=== PATIENT | female | born 1995 | race African-American/Black ===

== ENCOUNTER → 2021-04-13 | Outpatient (REF) | payer OTHER ==
[2021-04-13 16:47] LABS: HEMATOCRIT 42.1 % (36.0-47.0); HEMOGLOBIN 13.6 g/dl (12.0-15.5); MEAN CORPUSCULAR HEMOGLOBIN 26.6 pg (27.0-33.0); MEAN CORPUSCULAR HGB CONC 32.3 g/dl (32.0-36.5); MEAN CORPUSCULAR VOLUME 82.2 fl (80.0-96.0); PLATELET COUNT, AUTOMATED 348 10^3/uL (150-450); RED BLOOD COUNT 5.12 10^6/uL (4.00-5.40); WHITE BLOOD COUNT 9.5 10^3/uL (4.0-10.0)
[2021-04-13 18:07] LABS: HCG, SERUM QUANTITATIVE 154735 MIU/ML; HEPATITIS C VIRUS ABY INDEX 0.1 INDEX (<0.8); HIV 1&2 SCREEN CENTAUR NEGATIVE (NEGATIVE)
== END ==
LOC: M LAB REF 16:23
PROVIDERS: ATTEND Obstetrics & Gynecology
DX: Z32.01 Encounter for pregnancy test, result positive (principal)

== ENCOUNTER → 2021-08-11 | Outpatient (CLI) | payer OTHER ==
[2021-08-11 13:03] LABS: HEMATOCRIT 34.2 % (36.0-47.0); HEMOGLOBIN 10.6 g/dl (12.0-15.5); MEAN CORPUSCULAR HEMOGLOBIN 26.7 pg (27.0-33.0); MEAN CORPUSCULAR VOLUME 86.1 fl (80.0-96.0); PLATELET COUNT, AUTOMATED 297 10^3/uL (150-450); RED BLOOD COUNT 3.97 10^6/uL (4.00-5.40); WHITE BLOOD COUNT 10.8 10^3/uL (4.0-10.0)
== END ==
LOC: M LAB 11:17
PROVIDERS: ATTEND Advanced Practice Midwife
DX: Z34.02 Encounter for supervision of normal first pregnancy, second trimester (principal)

== ENCOUNTER → 2021-08-16 | Outpatient (CLI) | payer OTHER | LOC: M LAB 07:30 | PROVIDERS: ATTEND Obstetrics & Gynecology | DX: O99.810 Abnormal glucose complicating pregnancy (principal) ==

== ENCOUNTER → 2021-08-20 | Outpatient (CLI) | payer OTHER ==
[2021-08-20 09:25] LABS: BASO % 0.3 % (0.0-1.0); EOS # 0.1 10^3/uL (0.0-0.5); EOS % 0.9 % (0.0-3.0); HEMATOCRIT 33.3 % (36.0-47.0); HEMOGLOBIN 10.5 g/dl (12.0-15.5); LYMPH # 1.8 10^3/uL (1.5-5.0); LYMPH % 18.3 % (24.0-44.0); MEAN CORPUSCULAR HEMOGLOBIN 27.1 pg (27.0-33.0); MEAN CORPUSCULAR HGB CONC 31.5 g/dl (32.0-36.5); MEAN CORPUSCULAR VOLUME 85.8 fl (80.0-96.0); MONO # 0.9 10^3/uL (0.0-0.8); MONO % 9.6 % (2.0-8.0); NEUTROPHILS # 6.7 10^3/uL (1.5-8.5); PLATELET COUNT, AUTOMATED 325 10^3/uL (150-450); RED BLOOD COUNT 3.88 10^6/uL (4.00-5.40); WHITE BLOOD COUNT 9.6 10^3/uL (4.0-10.0)
== END ==
LOC: M LAB 08:31
PROVIDERS: ATTEND Obstetrics & Gynecology
DX: O99.810 Abnormal glucose complicating pregnancy (principal); Z3A.00 Weeks of gestation of pregnancy not specified

== ENCOUNTER → 2021-10-12 | Outpatient (REF) | payer OTHER | LOC: M LAB REF 16:18 | PROVIDERS: ATTEND Advanced Practice Midwife | DX: Z34.03 Encounter for supervision of normal first pregnancy, third trimester (principal) ==

== ENCOUNTER 2021-11-11 14:19 | Inpatient (IN) | payer OTHER ==
[2021-11-11] VITALS (16 sets, daily range): BP systolic 121–134; BP diastolic 68–90
[~2021-11-11] VITALS: Ht 152.4 cm; Wt 62.4 kg
[2021-11-11] MEDS ORDERED: PRENTAB9 PO (14:55)
[2021-11-11] MEDS ORDERED: TRANEXAMIC ACID INJection 1,000 MG in NS 100 ML IV PRN (17:10)
[2021-11-11] MEDS ORDERED: METHYLERGONOVINE MALEATE 0.2 MG/ML VIAL (J2210) IM PRN (17:10)
[2021-11-11] MEDS ORDERED: OXYTOCIN DRIP 30 UNITS in IV 1 EA IV PRN (17:10)
[2021-11-11] MEDS ORDERED: LIDOCAINE 1% MDV 20ML VIAL INFIL PRN (17:10)
[2021-11-11 17:37] LABS: HEMATOCRIT 40.5 % (36.0-47.0); HEMOGLOBIN 13.2 g/dl (12.0-15.5); MEAN CORPUSCULAR HEMOGLOBIN 27.9 pg (27.0-33.0); MEAN CORPUSCULAR HGB CONC 32.6 g/dl (32.0-36.5); MEAN CORPUSCULAR VOLUME 85.6 fl (80.0-96.0); PLATELET COUNT, AUTOMATED 233 10^3/uL (150-450); RED BLOOD COUNT 4.73 10^6/uL (4.00-5.40); WHITE BLOOD COUNT 12.2 10^3/uL (4.0-10.0)
[2021-11-11] MEDS ORDERED: EPIDURAL/PCA KEYS XX PRN (22:05)
[2021-11-11] MEDS ORDERED: diphenhydrAMINE 50MG/ML VIAL (J1200) IV PRN (22:05)
[2021-11-11] MEDS ORDERED: LR 500 ML IV PRN (22:05)
[2021-11-11] MEDS ORDERED: NALOXONE INJ 0.4MG/1ML VIAL (J2310 PER 1MG) IV PRN (22:05)
[2021-11-11] MEDS ORDERED: ePHEDrine SULFATE 25 MG/5 ML(5MG/ML) SYRINGE IVP PRN (22:05)
[2021-11-11] MEDS ORDERED: ONDANSETRON 4MG 2ML VIAL IV PRN (22:05)
[2021-11-11] MEDS: FENTANYL/ROPIVACAINE/NACL BAG 100 ML EPIDURAL SCH (22:30)
[2021-11-12] VITALS (17 sets, daily range): BP systolic 98–131; BP diastolic 56–90
[2021-11-12] MEDS ORDERED: OXYTOCIN DRIP 30 UNITS in IV 1 EA IV SCH ×2 (01:55→05:45)
[2021-11-12 05:25] LABS: CORD GAS ABE A -4.4; CORD GAS HCO3 A 21.5 MEQ/L; CORD GAS O2 SAT A 69.1 %; CORD GAS PCO2 A 42.2 mmHg; CORD GAS PH A 7.324 UNITS; CORD GAS PO2 A 32.1 mmHg; CORD GAS SBC A 20.2 MEQ/L; CORD GAS TCO2 A 22.7 MEQ/L
[2021-11-12 05:26] LABS: CORD GAS ABE V -7.8; CORD GAS HCO3 V 22.2 MEQ/L; CORD GAS PCO2 V 66.8 mmHg; CORD GAS PH V 7.139 UNITS; CORD GAS PO2 V 22.8 mmHg; CORD GAS TCO2 V 24.2 MEQ/L
[2021-11-12] MEDS ORDERED: IBUPROFEN 800 MG TAB PO PRN (05:45)
[2021-11-12] MEDS ORDERED: ACETAMINOPHEN TAB 650MG DOSE (2X325MG) PO PRN (05:45)
[2021-11-12] MEDS ORDERED: DIBUCAINE 1% OINTMENT 30GM TOP PRN (05:45)
[2021-11-12] MEDS ORDERED: MOM 30ML SUSPENSION UDC PO PRN (05:45)
[2021-11-12] MEDS ORDERED: RHOGAM 300 MCG (1500 IU) INJ (J2790) IM SCH (05:45)
[2021-11-12] MEDS ORDERED: ANUSOL HC CREAM 30GM TOP PRN (05:45)
[2021-11-12] MEDS ORDERED: IBUPROFEN 600MG TAB PO PRN (05:45)
[2021-11-12] MEDS ORDERED: ACETAMINOPHEN 500 MG TAB PO PRN (05:45)
[2021-11-12] MEDS ORDERED: METHYLERGONOVINE MALEATE 0.2 MG TAB PO PRN (05:45)
[2021-11-12] MEDS ORDERED: DOCUSATE SODIUM 100MG CAPSULE PO PRN (05:45)
[2021-11-12] MEDS: FENTANYL/ROPIVACAINE/NACL BAG 100 ML EPIDURAL SCH (08:05)
[2021-11-12] MEDS ORDERED: SLF 3 ML SYR IV PRN (08:20)
[2021-11-12] MEDS: PRENATAL VITAMINS CHEWABLE TABLET PO SCH (10:00)
[2021-11-12] MEDS ORDERED: SLF 3 ML SYR IV SCH (14:00)
[2021-11-13 06:00] VITALS: BP 112/77
[2021-11-13] MEDS: PRENATAL VITAMINS CHEWABLE TABLET PO SCH (09:00)
[2021-11-13] MEDS ORDERED: ACET-683 PO (14:52)
[2021-11-13] MEDS ORDERED: IBUP80TA PO (14:52)
[2021-11-13 18:00] VITALS: BP 133/83
[2021-11-14] MEDS ORDERED: MEASLES,MUMPS,RUBELLA VACCINE INJ (MMR-II) (90707) SC.IMMUN ONE (09:00)
== END 2021-11-13 19:10 | disposition home or self-care (01) | DRG 807 ==
LOC: M LDO 14:19 → M LDI 16:26 → M OBS 11-12 07:45
PROVIDERS: ADMIT Obstetrics & Gynecology; ATTEND Obstetrics & Gynecology
PROC: 10E0XZZ Delivery of Products of Conception, External Approach (ICD-10-PCS; principal; 2021-11-12)
PROC: 0HQ9XZZ Repair Perineum Skin, External Approach (ICD-10-PCS; 2021-11-12)
DX: O48.0 Post-term pregnancy (principal); Z37.0 Single live birth; Z3A.40 40 weeks gestation of pregnancy; O70.0 First degree perineal laceration during delivery